=== PATIENT | female | born 1975 | race Two or more races ===

== ENCOUNTER 2017-02-01 07:50 | Emergency (ER) | payer BC ==
[~2017-02-01] VITALS: Ht 162.6 cm; Wt 115.7 kg
[~2017-02-01 07:50] MED LIST: CITA20TA5 PO; FERR-26 PO
[2017-02-01 08:06] VITALS: BP 130/83
[2017-02-01] MEDS ORDERED: KETOROLAC TROMETHAMINE 60 MG/2 ML SYRINGE. IM ONE (08:15)
[2017-02-01] MEDS ORDERED: BENZ100C PO (08:25)
[2017-02-01] MEDS ORDERED: PROAIR HFA8.5 GM INH (08:25)
--- NOTE | 2017-02-01 08:25 | PHYS DOC ---
Past Medical History Past Medical History: Anemia, Anxiety, Bronchitis Past Surgical History: Additional Past Surgical Histo: C SECT X 2 Alcohol Use: None Drug Use: None Adult General Chief Complaint Chief Complaint: SHORTNESS OF BREATH HPI HPI This is a 41-year-old female states she's had intermittent left upper chest pain with some mild shortness of breath for the last week and a half. Patient was seen recently in prescribed prednisone but this did not help. She denies any significant health problems other than anemia and anxiety. Patient is somewhat hoarse upon my examination but speaking in complete sentences and in no respiratory distress. She rates her pain a 5 out of 10 worse with deep breathing all localized to left upper chest. She denies any smoking history. Review of Systems Review of Systems Constitutional: Denies fever or chills [] Eyes: Denies change in visual acuity, redness, or eye pain [] HENT: Denies nasal congestion or sore throat [] Respiratory: Has cough, has shortness of breath [] Cardiovascular: No additional information not addressed in HPI [] GI: Denies abdominal pain, nausea, vomiting, bloody stools or diarrhea [] : Denies dysuria or hematuria [] Musculoskeletal: Denies back pain or joint pain [] Integument: Denies rash or skin lesions [] Neurologic: Denies headache, focal weakness or sensory changes [] Endocrine: Denies polyuria or polydipsia [] Current Medications Current Medications Current Medications Medications (Trade) Dose Ordered Sig/Gisele Start Time Stop Time Status Last Admin Dose Admin Ketorolac Tromethamine (Toradol Im) 60 mg 1X ONCE 02/01/17 08:15 02/01/17 08:16 DC 02/01/17 08:18 60 MG Allergies Allergies Allergies Coded Allergies Type Severity Reaction Last Updated Verified No Known Drug Allergies 11/15/16 No Physical Exam Physical Exam Constitutional: Well developed, well nourished, no acute distress, non-toxic appearance. [] HENT: Normocephalic, atraumatic, bilateral external ears normal, oropharynx moist, no oral exudates, nose normal. [] Eyes: PERRLA, EOMI, conjunctiva normal, no discharge. [] Neck: Normal range of motion, no tenderness, supple, no stridor. [] Cardiovascular:Heart rate regular rhythm, no murmur [] Lungs & Thorax: Bilateral breath sounds clear to auscultation [] Abdomen: Bowel sounds normal, soft, no tenderness, no masses, no pulsatile masses. [] Skin: Warm, dry, no erythema, no rash. [] Back: No tenderness, no CVA tenderness. [] Extremities: No tenderness, no cyanosis, no clubbing, ROM intact, no edema. [] Neurologic: Alert and oriented X 3, normal motor function, normal sensory function, no focal deficits noted. [] Psychologic: Affect normal, judgement normal, mood normal. [] Current Patient Data Vital Signs Vital Signs Date Time Temp Pulse Resp B/P Pulse Ox O2 Delivery O2 Flow Rate FiO2 02/01/17 08:06 98.1 94 22 100 Room Air 98.1 EKG EKG EKG as interpreted by me shows a sinus rhythm with a rate of 82 bpm. There is a normal axis. There are no obvious ischemic findings. Radiology/Procedures Radiology/Procedures Portable one view of the chest as interpreted by me did not reveal an acute cardiopulmonary process. Course & Med Decision Making Course & Med Decision Making Pertinent Labs and Imaging studies reviewed. (See chart for details) This 41-year-old female with a normal chest film and EKG that does not have any concerning findings was given an IM injection of Toradol. Upon final reassessment, the patient feels improved and will be discharged with a course of cough medicine and a albuterol inhaler. There is no indication at this time to perform any laboratory workup. Her symptoms seem typical for upper respiratory infection. Dragon Disclaimer Dragon Disclaimer This electronic medical record was generated, in whole or in part, using a voice recognition dictation system. Departure Departure Impression: Primary Impression: Upper respiratory infection Additional Impression: Cough Disposition: 01 HOME, SELF-CARE Admitting Physician: Other Condition: STABLE Referrals: UNKNOWN PCP NAME (PCP) Patient Instructions: Cough, Adult, [id number] Additional Instructions: Please take your medication as prescribed and follow up closely with your primary doctor in the next 2-3 days. Return to the ER if you develop any worsening of your symptoms. Scripts Albuterol Sulfate (Proair Hfa Inhaler)8.5 Gm [id number] Puff INH PRN Q6HRS PRN SHORTNESS OF BREATH #1 INHALER Ref 0 Prov:TATIANNA GRAY DO 02/01/17 Benzonatate (Tessalon Perle)100 Mg [id number] Mg PO TID PRN COUGH #15 CAP Prov:TATIANNA GRAY DO 02/01/17 Problem Qualifiers TATIANNA GRAY DO Feb 01, 2017 08:25
--- NOTE | 2017-02-01 08:25 | EKG ---
[facility] [address] [place] [address] Test Date: 2017-02-01 Test Time: 08:13:11 Pat Name: ELEAZAR BLACK Department: Room: Gender: F [employer]: : 1975 Requested By: TATIANNA GRAY Order Number: [id number] Reading MD: Measurements Intervals [place] Rate: 82 P: 48 TN: 154 QRS: 25 QRSD: 84 T: 22 QT: 356 QTc: 419 Interpretive Statements SINUS RHYTHM QRS(T) CONTOUR ABNORMALITY CONSIDER ANTEROLATERAL MYOCARDIAL DAMAGE RI6.01 Unconfirmed report No previous ECG available for comparison
--- NOTE | 2017-02-01 08:26 | RAD ---
Portable chest, 02/01/2017: History: Shortness of breath Comparison is made to a study from 11/15/2016. The heart size and pulmonary vascularity are normal. No pulmonary infiltrates are seen. There is no evidence of pleural fluid. IMPRESSION: No acute cardiopulmonary abnormality is detected.
== END 2017-02-01 08:39 | disposition home or self-care (01) ==
LOC: ER 07:50
DX: J06.9 Acute upper respiratory infection, unspecified (principal); F41.9 Anxiety disorder, unspecified
CPT/HCPCS: 71010; 93005; 96372; 99284; J1885

== ENCOUNTER 2017-11-08 08:13 | Emergency (ER) | payer BC ==
[~2017-11-08] VITALS: Ht 162.6 cm; Wt 117.5 kg
[~2017-11-08 08:13] MED LIST changes: +BENZ100C PO; +PROAIR HFA8.5 GM INH
[2017-11-08] MEDS ORDERED: KETOROLAC 30 MG/ML INJ. IV ONE (08:30)
[2017-11-08] MEDS ORDERED: DICYCLOMINE HCL 10 MG CAPSULE PO ONE (08:30)
[2017-11-08] MEDS ORDERED: IV NORMAL SALINE 1000ML BAG 1,000 ML IV ONE (08:30)
[2017-11-08] MEDS ORDERED: FAMOTIDINE 20 MG/2 ML VIAL IVP ONE (08:30)
[2017-11-08] MEDS ORDERED: ONDANSETRON PF 4 MG/2 ML VIAL. IV ONE (08:30)
--- NOTE | 2017-11-08 08:30 | PHYS DOC ---
Past Medical History Past Medical History: Anemia, Anxiety, Bronchitis Past Surgical History: , Tubal ligation Additional Past Surgical Histo: C SECT X 2 Alcohol Use: None Drug Use: None Adult General Chief Complaint Chief Complaint: ABDOMINAL PAIN HPI HPI Patient is a 42 year old female with history of anemia, anxiety, bronchitis, who presents today with nausea vomiting, diarrhea and a slight midepigastric abdominal pain intermittently and vomiting that has been going on for 3 days. Patient denies any hematemesis or melena. Denies any chance she is . She states she does not have a PCP. Review of Systems Review of Systems Constitutional: Denies fever or chills [] Eyes: Denies change in visual acuity, redness, or eye pain [] HENT: Denies nasal congestion or sore throat [] Respiratory: Denies cough or shortness of breath [] Cardiovascular: No additional information not addressed in HPI [] GI: Reports nausea vomiting and diarrhea. Reports slight midepigastric abdominal pain : Denies dysuria or hematuria [] Musculoskeletal: Denies back pain or joint pain [] Integument: Denies rash or skin lesions [] Neurologic: Denies headache, focal weakness or sensory changes [] All other systems were reviewed and found to be within normal limits, except as documented in this note. Current Medications Current Medications Current Medications Medications (Trade) Dose Ordered Sig/Gisele Start Time Stop Time Status Last Admin Dose Admin Dicyclomine HCl (Bentyl) 20 mg 1X ONCE 11/08/17 08:30 11/08/17 08:37 DC 11/08/17 09:03 20 MG Famotidine (Pepcid Vial) 20 mg 1X ONCE 11/08/17 08:30 11/08/17 08:37 DC 11/08/17 09:04 20 MG Info (Do NOT chart on this entry -- for MONITORING) 1 each PRN DAILY PRN 11/08/17 10:15 11/10/17 10:14 Iohexol (Omnipaque 300 Mg/ml) 75 ml 1X ONCE 11/08/17 10:15 11/08/17 10:20 DC 11/08/17 10:20 75 ML Ketorolac Tromethamine (Toradol) 30 mg 1X ONCE 11/08/17 08:30 11/08/17 08:37 DC 11/08/17 09:04 30 MG Ondansetron HCl (Zofran) 4 mg 1X ONCE 11/08/17 08:30 11/08/17 08:37 DC 11/08/17 09:04 4 MG Sodium Chloride 1,000 ml @ 1,000 mls/hr 1X ONCE 11/08/17 08:30 11/08/17 09:29 DC 11/08/17 09:03 1,000 MLS/HR Allergies Allergies Allergies Coded Allergies Type Severity Reaction Last Updated Verified No Known Drug Allergies 11/15/16 No Physical Exam Physical Exam Constitutional: Well developed, well nourished, no acute distress, non-toxic appearance. [] HENT: Normocephalic, atraumatic, bilateral external ears normal, oropharynx moist, no oral exudates, nose normal. [] Eyes: PERRLA, EOMI, conjunctiva normal, no discharge. [] Neck: Normal range of motion, no tenderness, supple, no stridor. [] Cardiovascular:Heart rate regular rhythm, no murmur [] Lungs & Thorax: Bilateral breath sounds clear to auscultation [] Abdomen: Rounded abdomen. Bowel sounds normal, soft, slight midepigastric abdominal tenderness, no right upper quadrant or right lower quadrant tenderness , no masses, no pulsatile masses. [] Skin: Warm, dry, no erythema, no rash. [] Back: No tenderness, no CVA tenderness. [] Extremities: No tenderness, no cyanosis, no clubbing, ROM intact, no edema. [] Neurologic: Alert and oriented X 3, normal motor function, normal sensory function, no focal deficits noted. [] Psychologic: Affect normal, judgement normal, mood normal. [] Current Patient Data Vital Signs Vital Signs Date Time Temp Pulse Resp B/P (MAP) Pulse Ox O2 Delivery O2 Flow Rate FiO2 11/08/17 08:20 97.6 81 20 153/91 (111) 98 Room Air 97.6 Lab Values Laboratory Tests Test 11/08/17 08:25 11/08/17 08:30 11/08/17 08:39 White Blood Count 4.5 x10^3/uL (4.0-11.0) Red Blood Count 4.47 x10^6/uL (3.50-5.40) Hemoglobin 9.3 g/dL (12.0-15.5) L Hematocrit 30.0 % (36.0-47.0) L Mean Corpuscular Volume 67 fL (79-100) L Mean Corpuscular Hemoglobin 21 pg (25-35) L Mean Corpuscular Hemoglobin Concent 31 g/dL (31-37) Red Cell Distribution Width 17.7 % (11.5-14.5) H Platelet Count 290 x10^3/uL (140-400) Neutrophils (%) (Auto) 62 % (31-73) Lymphocytes (%) (Auto) 24 % (24-48) Monocytes (%) (Auto) 10 % (0-9) H Eosinophils (%) (Auto) 2 % (0-3) Basophils (%) (Auto) 1 % (0-3) Neutrophils # (Auto) 2.8 x10^3uL (1.8-7.7) Lymphocytes # (Auto) 1.1 x10^3/uL (1.0-4.8) Monocytes # (Auto) 0.4 x10^3/uL (0.0-1.1) Eosinophils # (Auto) 0.1 x10^3/uL (0.0-0.7) Basophils # (Auto) 0.1 x10^3/uL (0.0-0.2) Platelet Estimate Adequate (ADEQUATE) Large Platelets Present Hypochromasia Present Poikilocytosis Present Anisocytosis Slight Microcytosis Marked Target Cells Occ Tear Drop Cells Few Ovalocytes Few Schistocytes Occ Sodium Level 143 mmol/L (136-145) Potassium Level 3.5 mmol/L (3.5-5.1) Chloride Level 104 mmol/L (98-107) Carbon Dioxide Level 27 mmol/L (21-32) Anion Gap 12 (6-14) Blood Urea Nitrogen 14 mg/dL (7-20) Creatinine 0.7 mg/dL (0.6-1.0) Estimated GFR (Cockcroft-Gault) 92.7 BUN/Creatinine Ratio 20 (6-20) Glucose Level 86 mg/dL (70-99) Calcium Level 8.5 mg/dL (8.5-10.1) Total Bilirubin 0.2 mg/dL (0.2-1.0) Aspartate Amino Transferase (AST) 36 U/L (15-37) Alanine Aminotransferase (ALT) 31 U/L (14-59) Alkaline Phosphatase 99 U/L (46-116) Total Protein 7.6 g/dL (6.4-8.2) Albumin 3.5 g/dL (3.4-5.0) Albumin/Globulin Ratio 0.9 (1.0-1.7) L Lipase 151 U/L (73-393) Urine Collection Type Unknown Urine Color Yellow Urine Clarity Clear Urine pH 6.5 Urine Specific Nelson 1.015 Urine Protein Negative mg/dL (NEG-TRACE) Urine Glucose (UA) Negative mg/dL (NEG) Urine Ketones (Stick) Negative mg/dL (NEG) Urine Blood Large (NEG) Urine Nitrite Negative (NEG) Urine Bilirubin Negative (NEG) Urine Urobilinogen Dipstick 0.2 mg/dL (0.2 mg/dL) Urine Leukocyte Esterase Small (NEG) Urine RBC 3-5 /HPF (0-2) Urine WBC Occ /HPF (0-4) Urine Squamous Epithelial Cells Few /LPF Urine Bacteria 0 /HPF (0-FEW) POC Urine HCG, Qualitative Hcg negative (Negative) Laboratory Tests 11/08/17 08:25 Laboratory Tests 11/08/17 08:25 EKG EKG [] Radiology/Procedures Radiology/Procedures []PROCEDURE: CT ABD PELV W/ IV CONTRST ONLY Indication: Upper abdominal pain and vomiting. Technique: Axial images and coronal and sagittal reformatted images are provided. 75 mL of intravenous Omnipaque 300 was administered without complication. No comparison is available. One or more of the following individualized dose reduction techniques were utilized for this examination: 1. Automated exposure control 2. Adjustment of the mA and/or kV according to patient size 3. Use of iterative reconstruction technique Findings: The lung bases are clear. There is no pleural effusion. The heart is not enlarged. There is fatty infiltration of the liver. Gallbladder is unremarkable. Spleen is not enlarged. Pancreas and adrenals are unremarkable. Kidneys are symmetrically perfused. Aorta is normal caliber. There is a retroaortic left renal vein which is a normal vascular variant. There is a small hiatal hernia. Lack of oral contrast limits evaluation of bowel. There is no small bowel obstruction or mural thickening. There are a few diverticula in the colon. There are no findings of diverticulitis. Normal appendix is probably visualized. There is no free pelvic fluid. There is no adnexal mass. Bladder is unremarkable. There are calcified phleboliths. There are minimal degenerative changes in the spine. Impression: 1. No acute abdominal findings. 2. Diverticulosis in the colon. 3. Probable small hiatal hernia. 4. Fatty infiltration of the liver. DICTATED and SIGNED BY: ONESIMO SPRINGER MD DATE: 11/08/17 1031 CC: PAOLA BACA APRN; NO PCP; NON,STAFF ~ Course & Med Decision Making Course & Med Decision Making Pertinent Labs and Imaging studies reviewed. (See chart for details) This is a 42-year-old female patient presented to the ED today with nausea vomiting and diarrhea for 3 days. She has slight midepigastric abdominal pain as well. Patient's labs are negative for any acute findings. UA positive. Discharged with Bactrim for 3 days. Instructed to push fluids. Maintain good hand hygiene. Discharged with Compazine for nausea vomiting. Discharged with acyclovir. Follow-up with PCP in 1-2 weeks. Dragon Disclaimer Dragon Disclaimer This electronic medical record was generated, in whole or in part, using a voice recognition dictation system. Departure Departure Impression: Primary Impression: Nausea and vomiting Additional Impressions: Diarrhea Urinary tract infection Disposition: HOME, SELF-CARE Condition: STABLE Referrals: NO PCP (PCP) follow up with your doctor in one week Patient Instructions: Diarrhea, Nausea and Vomiting, Urinary Tract Infection Additional Instructions: You were seen for nausea vomiting and diarrhea. This is likely a viral illness. It will run its own course. Push fluids. Maintain good hand hygiene. Your urine also has infection. Take the prescribed antibiotics until completed. Follow-up with your own doctor in 1-2 weeks. Scripts Sulfamethoxazole/Trimethoprim (BACTRIM DS TABLET) 1 Each Tablet 1 TAB PO BID, #6 TAB Prov: PAOLA BACA APRN 11/08/17 Dicyclomine Hcl (DICYCLOMINE HCL) 20 Mg Tablet 1 TAB PO QID, #30 TAB Prov: PAOLA BACA APRN 11/08/17 Prochlorperazine Maleate (Compazine) 10 Mg Tablet 10 MG PO Q8HRS, #20 TAB Prov: PAOLA BACA APRN 11/08/17 Problem Qualifiers Primary Impression: Nausea and vomiting Vomiting type: unspecified Vomiting Intractability: non-intractable Qualified Codes: R11.2 - Nausea with vomiting, unspecified Additional Impressions: Diarrhea Diarrhea type: unspecified type Qualified Codes: R19.7 - Diarrhea, unspecified Urinary tract infection Urinary tract infection type: site unspecified Hematuria presence: without hematuria Qualified Codes: N39.0 - Urinary tract infection, site not specified PAOLA BACA APRN Nov 08, 2017 08:30
[2017-11-08 08:49] LABS: BILIRUBIN,URINE NEGATIVE (NEG); GLUCOSE,URINE NEGATIVE (NEG); NITRITE,URINE NEGATIVE (NEG); PH,URINE 6.5; PROTEIN,URINE NEGATIVE (NEG-TRACE); UROBILINOGEN,URINE 0.2 mg/dL (0.2 mg/dL)
[2017-11-08 08:50] LABS: BASO # 0.1 x10^3/uL (0.0-0.2); BASO % 1 % (0-3); EOS % 2 % (0-3); HEMOGLOBIN 9.3 g/dL (12.0-15.5); LYMPH # 1.1 x10^3/uL (1.0-4.8); LYMPH % 24 % (24-48); MEAN CORPUSCULAR HEMOGLOBIN 21 pg (25-35); MEAN CORPUSCULAR HGB CONC 31 g/dL (31-37); MEAN CORPUSCULAR VOLUME 67 fL (79-100); MONO % 10 % (0-9); NEUT % 62 % (31-73); PLATELET COUNT 290 x10^3/uL (140-400); RED BLOOD COUNT 4.47 x10^6/uL (3.50-5.40); RED CELL DISTRIBUTION WIDTH 17.7 % (11.5-14.5); WHITE BLOOD COUNT 4.5 x10^3/uL (4.0-11.0)
[2017-11-08 08:59] LABS: CALCIUM 8.5 mg/dL (8.5-10.1); CREATININE 0.7 mg/dL (0.6-1.0); GFR 92.7; POTASSIUM 3.5 mmol/L (3.5-5.1)
[2017-11-08 08:59] LABS: BACTERIA,URINE 0 /HPF (0-FEW); SQUAMOUS EPITHELIAL CELL,UR FEW /LPF; WBC,URINE OCC /HPF (0-4)
[2017-11-08 09:03] LABS: ALBUMIN 3.5 g/dL (3.4-5.0); ALBUMIN/GLOBULIN RATIO 0.9 (1.0-1.7); TOTAL BILIRUBIN 0.2 mg/dL (0.2-1.0); TOTAL PROTEIN 7.6 g/dL (6.4-8.2)
[2017-11-08 09:40] LABS: PLT ESTIMATE ADEQUATE (ADEQUATE)
[2017-11-08 09:41] LABS: ANISOCYTOSIS SLIGHT; HYPOCHROMIA PRESENT; MICROCYTOSIS MARKED; POIKILOCYTOSIS PRESENT
[2017-11-08 09:42] LABS: OVALOCYTES FEW; SCHISTOCYTES OCC; TARGET CELLS OCC; TEAR DROP CELLS FEW
[2017-11-08] MEDS ORDERED: CONTRAST GIVEN MC PRN (10:15)
[2017-11-08] MEDS ORDERED: IOHEXOL 300 MG/ML 100ML VIAL. IV ONE (10:15)
--- NOTE | 2017-11-08 10:40 | RAD ---
Indication: Upper abdominal pain and vomiting. Technique: Axial images and coronal and sagittal reformatted images are provided. 75 mL of intravenous Omnipaque 300 was administered without complication. No comparison is available. One or more of the following individualized dose reduction techniques were utilized for this examination: 1. Automated exposure control 2. Adjustment of the mA and/or kV according to patient size 3. Use of iterative reconstruction technique Findings: The lung bases are clear. There is no pleural effusion. The heart is not enlarged. There is fatty infiltration of the liver. Gallbladder is unremarkable. Spleen is not enlarged. Pancreas and adrenals are unremarkable. Kidneys are symmetrically perfused. Aorta is normal caliber. There is a retroaortic left renal vein which is a normal vascular variant. There is a small hiatal hernia. Lack of oral contrast limits evaluation of bowel. There is no small bowel obstruction or mural thickening. There are a few diverticula in the colon. There are no findings of diverticulitis. Normal appendix is probably visualized. There is no free pelvic fluid. There is no adnexal mass. Bladder is unremarkable. There are calcified phleboliths. There are minimal degenerative changes in the spine. Impression: 1. No acute abdominal findings. 2. Diverticulosis in the colon. 3. Probable small hiatal hernia. 4. Fatty infiltration of the liver.
[2017-11-08] MEDS ORDERED: DICY20TA3 PO (11:13)
[2017-11-08] MEDS ORDERED: PROC10TA57 PO (11:13)
[2017-11-08] MEDS ORDERED: SULF1TAB24 PO (11:13)
[2017-11-08 11:20] VITALS: BP 133/86
== END 2017-11-08 11:31 | disposition home or self-care (01) ==
LOC: ER 08:13
DX: R19.7 Diarrhea, unspecified (principal); N39.0 Urinary tract infection, site not specified; F41.9 Anxiety disorder, unspecified
CPT/HCPCS: 36415; 74177; 80053; 81001; 81025; 83690; 85025; 87086; 96361; 96374; 96375; 99285; J1885; J2405; J7030; Q9967; S0028

== ENCOUNTER 2019-02-14 10:48 | Emergency (ER) | payer SELFPAY ==
[~2019-02-14] VITALS: Ht 162.6 cm; Wt 117.5 kg
[~2019-02-14 10:48] MED LIST changes: +ALBU2.5V8 INH; -CITA20TA5 PO; +CITA20TA6 PO; +DICY20TA3 PO; -FERR-26 PO; +FERR325T14 PO; -PROAIR HFA8.5 GM INH; +PROC10TA57 PO; +SULF1TAB24 PO
[2019-02-14 11:01] VITALS: BP 134/79
[2019-02-14] MEDS ORDERED: MELO7.5T29 PO (11:04)
[2019-02-14] MEDS ORDERED: HYDR-3164 PO (11:04)
[2019-02-14] MEDS ORDERED: AMOX500T PO (11:04)
--- NOTE | 2019-02-14 11:05 | PHYS DOC ---
Past Medical History Past Medical History: Anemia, Anxiety, Bronchitis Past Surgical History: , Tubal ligation Additional Past Surgical Histo: C SECT X 2 Alcohol Use: None Drug Use: None Adult General Chief Complaint Chief Complaint: FACE PROBLEM HPI HPI Patient is a 43 year old female who presents with left side upper tooth pain for the past 3 days that has been getting a little bit worse over time. Woke up today with some swelling to the face. Subjective fever, no home temperature has been taken. No relief with [id number] ibuprofen. No trauma. She is able to swallow without any difficulty. Nothing seems to make the symptoms better or worse.[] Review of Systems Review of Systems Constitutional: Denies fever or chills [] Eyes: Denies change in visual acuity, redness, or eye pain [] HENT: Denies nasal congestion or sore throat, see history of present illness[] Respiratory: Denies cough or shortness of breath [] Cardiovascular: No chest pain or palpitations[] GI: Denies abdominal pain, nausea, vomiting, bloody stools or diarrhea [] : Denies dysuria or hematuria [] Musculoskeletal: Denies back pain or joint pain [] Integument: Denies rash or skin lesions [] Neurologic: Denies headache, focal weakness or sensory changes [] Endocrine: Denies polyuria or polydipsia [] All other systems were reviewed and found to be within normal limits, except as documented in this note. Allergies Allergies Allergies Coded Allergies Type Severity Reaction Last Updated Verified No Known Drug Allergies 11/15/16 No Physical Exam Physical Exam Constitutional: Well developed, well nourished, no acute distress, non-toxic appearance. [] HENT: Normocephalic, atraumatic, bilateral external ears normal, oropharynx moist, no oral exudates, nose normal. Tenderness to percussion over tooth #9 and 10. There is no drainable abscess appreciated. No abnormal lesions on palpation of the buccal or lingual surface.[] Eyes: PERRLA, EOMI, conjunctiva normal, no discharge. [] Neck: Normal range of motion, no tenderness, supple, no stridor. [] Cardiovascular:Heart rate regular rhythm, no murmur [] Lungs & Thorax: Bilateral breath sounds clear to auscultation [] Abdomen: Not examined[] Skin: Warm, dry, no erythema, no rash. [] Back: No tenderness, no CVA tenderness. [] Extremities: No tenderness, no cyanosis, no clubbing, ROM intact, no edema. [] Neurologic: Alert and oriented X 3, normal motor function, normal sensory function, no focal deficits noted. [] Psychologic: Affect normal, judgement normal, mood normal. [] EKG EKG [] Radiology/Procedures Radiology/Procedures [] Course & Med Decision Making Course & Med Decision Making Pertinent Labs and Imaging studies reviewed. (See chart for details) Medical decision making: Patient appears to have a periapical abscess, no drainable abscess appreciated. Nontoxic patient. She is able to tolerate her own secretions and liquids as well as foods. We will attempt outpatient treatment and have her follow-up with dental.[] Dragon Disclaimer Dragon Disclaimer This electronic medical record was generated, in whole or in part, using a voice recognition dictation system. Departure Departure Impression: Primary Impression: Periapical abscess with facial involvement Disposition: HOME, SELF-CARE Condition: IMPROVED Referrals: NO PCP (PCP) Patient Instructions: Dental Abscess Additional Instructions: Follow-up with your primary care physician and dentist in 2 days. Take the medication as prescribed. Return to the ER if worsening pain, unable to tolerate swallowing, or any other concerns. Scripts Hydrocodone/Apap 5-325 (NORCO 5-325 TABLET) 1 Each Tablet 1-2 EACH PO PRN Q6HRS PRN for SEVERE PAIN, #15 as needed for pain Prov: DENISSE MCDONALD DO 02/14/19 Meloxicam (MELOXICAM) 7.5 Mg Tablet 7.5 MG PO DAILY, #20 TAB Prov: DENISSE MCDONALD DO 02/14/19 Amoxicillin (AMOXICILLIN) 500 Mg Tablet 1 TAB PO TID, #30 TAB Prov: DENISSE MCDONALD DO 02/14/19 DENISSE MCDONALD DO Feb 14, 2019 11:05
== END 2019-02-14 11:14 | disposition home or self-care (01) ==
LOC: ER 10:48
DX: K04.7 Periapical abscess without sinus (principal); R50.9 Fever, unspecified; F41.9 Anxiety disorder, unspecified; Z98.890 Other specified postprocedural states; Z98.51 Tubal ligation status
CPT/HCPCS: 99283

== ENCOUNTER 2019-12-29 13:15 | Emergency (ER) | payer SELFPAY ==
[~2019-12-29] VITALS: Ht 162.6 cm; Wt 113.6 kg
[~2019-12-29 13:15] MED LIST changes: +AMOX500T PO; +HYDR-3164 PO; +MELO7.5T29 PO
[2019-12-29] MEDS ORDERED: IV NORMAL SALINE 1000ML BAG 1,000 ML IV SCH (13:46)
--- NOTE | 2019-12-29 13:56 | PHYS DOC ---
Past Medical History Past Medical History: Anemia, Anxiety, Bronchitis Past Surgical History: , Tubal ligation Additional Past Surgical Histo: C SECT X 2 Alcohol Use: None Drug Use: None Adult General Chief Complaint Chief Complaint: DIZZY/LIGHT HEADED [facility] HPI Patient is a 44-year-old female who presents to the emergency department for evaluation. She states for the past 3 days, she has had several episodes of nausea, vomiting, diarrhea, as well as generalized abdominal pain, described as a burning pain. She has not had any bloody emesis or stools, urinary symptoms, chest pain, or shortness of breath. She states she has felt lightheaded. She is noted to be somewhat tachycardic. She has not had any recent travel or antibiotic use. There are no alleviating or exacerbating factors to her symptoms otherwise. The patient is Marshallese-speaking and history was obtained via language line. Review of Systems Review of Systems Constitutional: Denies chills. Reports subjective fevers. [] Eyes: Denies change in visual acuity, redness, or eye pain [] HENT: Denies nasal congestion or sore throat [] Respiratory: Denies cough or shortness of breath [] Cardiovascular: The patient denies any shortness of breath, chest pain, palpitations, or orthopnea [] GI: No additional information not addressed in HPI [] : Denies dysuria or hematuria [] Musculoskeletal: Denies back pain or joint pain [] Integument: Denies rash or skin lesions [] Neurologic: Denies headache, focal weakness or sensory changes. Reports lightheadedness and generalized fatigue.[] Endocrine: Denies polyuria or polydipsia [] All other systems were reviewed and found to be within normal limits, except as documented in this note. Current Medications Current Medications Current Medications Medications (Trade) Dose Ordered Sig/Gisele Start Time Stop Time Status Last Admin Dose Admin Acetaminophen (Tylenol) 1,000 mg 1X ONCE 12/29/19 14:00 12/29/19 14:01 DC 12/29/19 14:25 1,000 MG Info (CONTRAST GIVEN -- Rx MONITORING) 1 each PRN DAILY PRN 12/29/19 14:45 12/31/19 14:44 Iohexol (Omnipaque 300 Mg/ml) 75 ml 1X ONCE 12/29/19 14:30 12/29/19 14:33 DC 12/29/19 14:53 75 ML Morphine Sulfate (Morphine Sulfate) 4 mg PRN Q15MIN PRN 12/29/19 14:00 12/30/19 13:59 12/29/19 14:24 4 MG Multi-Ingredient Mouthwash/Gargle (Gi Cocktail) 20 ml 1X ONCE 12/29/19 14:00 12/29/19 14:01 DC 12/29/19 14:23 20 ML Ondansetron HCl (Zofran) 4 mg 1X ONCE 12/29/19 14:00 12/29/19 14:01 DC 12/29/19 14:24 4 MG Potassium Chloride (Klor-Con) 40 meq 1X ONCE 12/29/19 14:45 12/29/19 14:46 DC 12/29/19 15:47 40 MEQ Sodium Chloride 1,000 ml @ 1,000 mls/hr 1X ONCE 12/29/19 14:00 12/29/19 14:59 DC 12/29/19 14:00 1,000 MLS/HR Allergies Allergies Allergies Coded Allergies Type Severity Reaction Last Updated Verified No Known Drug Allergies 11/15/16 No Physical Exam Physical Exam PHYSICAL EXAM: CONSTITUTIONAL: Well developed, well nourished, nontoxic appearing HEAD: normocephalic, atraumatic EENT: PERRL, EOMI. Conjunctivae normal color, sclerae non-icteric; moist mucous membranes. NECK: Supple, non-tender; no meningismus. LUNGS: Lungs CTA, breathing even and unlabored. Normal air movement. HEART: Regular tachycardia, no murmur CHEST: No deformity; non-tender ABDOMEN: The abdomen is soft, there is mild diffuse tenderness to palpation to the entire abdomen, without focal tenderness to palpation, rebound, or guarding. And non-tender, no masses or bruits. EXTREM: Normal ROM; no deformity, no calf tenderness. Normal pulses palpable in all extremities. There is no pedal edema. SKIN: No rash; no diaphoresis NEURO: Alert; normal speech and cognition; CN's grossly intact; strength grossly intact without focal deficit. BACK: No CVA TTP. Current Patient Data Vital Signs Vital Signs Date Time Temp Pulse Resp B/P (MAP) Pulse Ox O2 Delivery O2 Flow Rate FiO2 12/29/19 14:24 20 12/29/19 13:15 100.9 117 157/94 (115) 97 Room Air 100.9 Lab Values Laboratory Tests Test 12/29/19 13:49 12/29/19 13:57 12/29/19 17:08 White Blood Count 7.2 x10^3/uL (4.0-11.0) Red Blood Count 4.70 x10^6/uL (3.50-5.40) Hemoglobin 9.4 g/dL (12.0-15.5) L Hematocrit 30.4 % (36.0-47.0) L Mean Corpuscular Volume 65 fL (79-100) L Mean Corpuscular Hemoglobin 20 pg (25-35) L Mean Corpuscular Hemoglobin Concent 31 g/dL (31-37) Red Cell Distribution Width 21.8 % (11.5-14.5) H Platelet Count 249 x10^3/uL (140-400) Neutrophils (%) (Auto) 94 % (31-73) H Lymphocytes (%) (Auto) 3 % (24-48) L Monocytes (%) (Auto) 3 % (0-9) Eosinophils (%) (Auto) 0 % (0-3) Basophils (%) (Auto) 1 % (0-3) Neutrophils # (Auto) 6.7 x10^3/uL (1.8-7.7) Lymphocytes # (Auto) 0.2 x10^3/uL (1.0-4.8) L Monocytes # (Auto) 0.2 x10^3/uL (0.0-1.1) Eosinophils # (Auto) 0.0 x10^3/uL (0.0-0.7) Basophils # (Auto) 0.0 x10^3/uL (0.0-0.2) Segmented Neutrophils % 75 % (35-66) H Band Neutrophils % 15 % (0-9) H Lymphocytes % 4 % (24-48) L Monocytes % 6 % (0-10) Toxic Granulation Slight Platelet Estimate Adequate (ADEQUATE) Polychromasia Slight Hypochromasia Mod Anisocytosis Mod Microcytosis Marked Ovalocytes Few Schistocytes Occ Sodium Level 136 mmol/L (136-145) Potassium Level 3.3 mmol/L (3.5-5.1) L Chloride Level 100 mmol/L (98-107) Carbon Dioxide Level 25 mmol/L (21-32) Anion Gap 11 (6-14) Blood Urea Nitrogen 13 mg/dL (7-20) Creatinine 1.1 mg/dL (0.6-1.0) H Estimated GFR (Cockcroft-Gault) 54.5 BUN/Creatinine Ratio 12 (6-20) Glucose Level 88 mg/dL (70-99) Lactic Acid Level 1.0 mmol/L (0.4-2.0) Calcium Level 8.6 mg/dL (8.5-10.1) Total Bilirubin 0.3 mg/dL (0.2-1.0) Aspartate Amino Transferase (AST) 42 U/L (15-37) H Alanine Aminotransferase (ALT) 48 U/L (14-59) Alkaline Phosphatase 111 U/L (46-116) Troponin I Quantitative < 0.017 ng/mL (0.000-0.055) Total Protein 7.4 g/dL (6.4-8.2) Albumin 3.7 g/dL (3.4-5.0) Albumin/Globulin Ratio 1.0 (1.0-1.7) Lipase 119 U/L (73-393) Influenza Type A Antigen Negative (NEGATIVE) Influenza Type B Antigen Negative (NEGATIVE) Urine Collection Type Unknown Urine Color Yellow Urine Clarity Clear Urine pH 6.0 Urine Specific [place] >=1.030 Urine Protein Negative mg/dL (NEG-TRACE) Urine Glucose (UA) Negative mg/dL (NEG) Urine Ketones (Stick) Negative mg/dL (NEG) Urine Blood Negative (NEG) Urine Nitrite Negative (NEG) Urine Bilirubin Negative (NEG) Urine Urobilinogen Dipstick 0.2 mg/dL (0.2 mg/dL) Urine Leukocyte Esterase Negative (NEG) Urine RBC Rare /HPF (0-2) Urine WBC Rare /HPF (0-4) Urine Squamous Epithelial Cells Many /LPF Urine Bacteria Few /HPF (0-FEW) Laboratory Tests 12/29/19 13:49 Laboratory Tests 12/29/19 13:49 EKG EKG []Sinus tachycardia at a rate of 111 beats for minute, normal axis, normal intervals. Nonspecific ST/T changes without acute ischemic changes noted. Radiology/Procedures Radiology/Procedures PROCEDURE: CT ABD PELV W/ IV CONTRST ONLY Exam: CT abdomen and pelvis with contrast INDICATION: Abdominal pain, nausea vomiting diarrhea TECHNIQUE: Sequential axial images through the abdomen and pelvis obtained following the administration of 75 mL of Omni 300 IV contrast. Sagittal and coronal reformatted images were reconstructed from the axial data and reviewed. Comparisons: 11/08/2017 FINDINGS: Heart size is normal. No pericardial effusion. Visualized lung bases are clear. No pleural effusion. Liver, spleen, pancreas, gallbladder and adrenals are unremarkable. Kidneys a straight symmetric enhancement. No perinephric inflammation or hydronephrosis. No renal or ureteral calculi are identified. Bladder is decompressed not well evaluated. Uterus is not enlarged. No abnormal adnexal mass. Large and small bowel are unremarkable. Appendix is normal. No free intra-abdominal air or fluid. No obstruction. Abdominal aorta has a normal course and caliber. Abdominal vasculature is patent. No enlarged abdominal lymph nodes are identified. No suspicious osseous lesions or acute fractures. IMPRESSION: 1. Liquid stool noted throughout the colon consistent with history of diarrhea. 2. Otherwise, no acute process identified within the abdomen or pelvis.[] Course & Med Decision Making Course & Med Decision Making Pertinent Labs and Imaging studies reviewed. (See chart for details) []5:35 PM:Patient remains stable. I discussed test results, the need for close follow-up, and return precautions. Dragon Disclaimer Dragon Disclaimer This electronic medical record was generated, in whole or in part, using a voice recognition dictation system. Departure Departure Impression: Primary Impression: Nausea vomiting and diarrhea Disposition: 01 HOME, SELF-CARE Condition: STABLE Referrals: SEVEN PATTERSON MD (PCP) Patient Instructions: Diarrhea, Nausea and Vomiting, Viral Gastroenteritis Scripts Ondansetron (ONDANSETRON ODT) 4 Mg Tab.rapdis 1 TAB PO PRN Q6-8HRS, #15 TAB Prov: DORINDA RODRIGUEZ MD 12/29/19 DORINDA RODRIGUEZ MD Dec 29, 2019 13:56
[2019-12-29] MEDS ORDERED: LIDO:MAALOX 1:1 20 ML SINGLE DOSE. SWSW ONE (14:00)
[2019-12-29] MEDS ORDERED: IV NORMAL SALINE 1000ML BAG 1,000 ML IV ONE (14:00)
[2019-12-29] MEDS ORDERED: ONDANSETRON PF 4 MG/2 ML VIAL. IV ONE (14:00)
[2019-12-29] MEDS ORDERED: ACETAMINOPHEN 500 MG TABLET PO ONE (14:00)
[2019-12-29] MEDS ORDERED: MORPHINE SULFATE 4 MG/ML VIAL. IV/SQ PRN (14:00)
[2019-12-29 14:01] LABS: BASO % 1 % (0-3); EOS % 0 % (0-3); HEMATOCRIT 30.4 % (36.0-47.0); HEMOGLOBIN 9.4 g/dL (12.0-15.5); LYMPH # 0.2 x10^3/uL (1.0-4.8); LYMPH % 3 % (24-48); MEAN CORPUSCULAR HEMOGLOBIN 20 pg (25-35); MEAN CORPUSCULAR HGB CONC 31 g/dL (31-37); MEAN CORPUSCULAR VOLUME 65 fL (79-100); MONO # 0.2 x10^3/uL (0.0-1.1); MONO % 3 % (0-9); NEUT # 6.7 x10^3/uL (1.8-7.7); NEUT % 94 % (31-73); PLATELET COUNT 249 x10^3/uL (140-400); RED CELL DISTRIBUTION WIDTH 21.8 % (11.5-14.5); WHITE BLOOD COUNT 7.2 x10^3/uL (4.0-11.0)
[2019-12-29 14:21] LABS: CALCIUM 8.6 mg/dL (8.5-10.1); CREATININE 1.1 mg/dL (0.6-1.0); GFR 54.5; POTASSIUM 3.3 mmol/L (3.5-5.1)
[2019-12-29 14:26] LABS: ALBUMIN 3.7 g/dL (3.4-5.0); TOTAL BILIRUBIN 0.3 mg/dL (0.2-1.0); TOTAL PROTEIN 7.4 g/dL (6.4-8.2)
[2019-12-29] MEDS ORDERED: IOHEXOL 300 MG/ML 100ML VIAL. IV ONE (14:30)
[2019-12-29 14:33] LABS: INFLUENZA A PATIENT NEGATIVE (NEGATIVE); INFLUENZA B PATIENT NEGATIVE (NEGATIVE)
[2019-12-29 14:40] LABS: % BANDS 15 % (0-9); % LYMPHS 4 % (24-48); % MONOS 6 % (0-10); % SEGS 75 % (35-66)
--- NOTE | 2019-12-29 14:40 | EKG ---
[facility] [address] [place] [address] Test Date: 2019-12-29 Test Time: 13:49:50 Pat Name: ELEAZAR BLACK Department: Room: Gender: F [employer]: : 1975 Requested By: DORINDA RODRIGUEZ Order Number: [id number] Reading MD: Measurements Intervals [place] Rate: 110 P: 36 MT: 144 QRS: 26 QRSD: 82 T: 28 QT: 360 QTc: 493 Interpretive Statements SINUS TACHYCARDIA NON SPECIFIC T ABNORMALITY NON SPECIFIC ST DEPRESSION BORDERLINE ECG No previous ECG available for comparison
[2019-12-29] MEDS ORDERED: CONTRAST GIVEN. MC PRN (14:45)
[2019-12-29] MEDS ORDERED: POTASSIUM CHLORIDE 20 MEQ TABLET.ER. PO ONE (14:45)
[2019-12-29 15:20] LABS: PLT ESTIMATE ADEQUATE (ADEQUATE)
--- NOTE | 2019-12-29 15:21 | RAD ---
Exam: CT abdomen and pelvis with contrast INDICATION: Abdominal pain, nausea vomiting diarrhea TECHNIQUE: Sequential axial images through the abdomen and pelvis obtained following the administration of 75 mL of Omni 300 IV contrast. Sagittal and coronal reformatted images were reconstructed from the axial data and reviewed. Comparisons: 11/08/2017 FINDINGS: Heart size is normal. No pericardial effusion. Visualized lung bases are clear. No pleural effusion. Liver, spleen, pancreas, gallbladder and adrenals are unremarkable. Kidneys a straight symmetric enhancement. No perinephric inflammation or hydronephrosis. No renal or ureteral calculi are identified. Bladder is decompressed not well evaluated. Uterus is not enlarged. No abnormal adnexal mass. Large and small bowel are unremarkable. Appendix is normal. No free intra-abdominal air or fluid. No obstruction. Abdominal aorta has a normal course and caliber. Abdominal vasculature is patent. No enlarged abdominal lymph nodes are identified. No suspicious osseous lesions or acute fractures. IMPRESSION: 1. Liquid stool noted throughout the colon consistent with history of diarrhea. 2. Otherwise, no acute process identified within the abdomen or pelvis. Exposure: One or more of the following in the visualized dose reduction techniques were utilized for this examination: 1. Automated exposure control 2. Adjustment of the MA and/or KV according to patient size 3. Use of iterative of reconstructive technique Electronically signed by: Taina Westbrook MD (12/29/2019 3:18 PM) [facility] [place]
[2019-12-29 15:25] LABS: HYPOCHROMIA MOD; POLYCHROMASIA SLIGHT
[2019-12-29 15:26] LABS: ANISOCYTOSIS MOD; MICROCYTOSIS MARKED; OVALOCYTES FEW; SCHISTOCYTES OCC; TOXIC GRANULATION SLIGHT
[2019-12-29 17:14] LABS: BILIRUBIN,URINE NEGATIVE (NEG); CLARITY,URINE CLEAR; COLOR,URINE YELLOW; NITRITE,URINE NEGATIVE (NEG); PROTEIN,URINE NEGATIVE (NEG-TRACE); UROBILINOGEN,URINE 0.2 mg/dL (0.2 mg/dL)
[2019-12-29 17:21] LABS: RBC,URINE RARE /HPF (0-2); WBC,URINE RARE /HPF (0-4)
[2019-12-29 17:22] LABS: BACTERIA,URINE FEW /HPF (0-FEW); SQUAMOUS EPITHELIAL CELL,UR MANY /LPF
[2019-12-29] MEDS ORDERED: ONDA4TAB12 PO (17:36)
[2019-12-29 17:38] VITALS: BP 95/53
== END 2019-12-29 17:45 | disposition home or self-care (01) ==
LOC: ER 13:15
DX: R11.2 Nausea with vomiting, unspecified (principal); R19.7 Diarrhea, unspecified; R10.84 Generalized abdominal pain; R42 Dizziness and giddiness; F41.9 Anxiety disorder, unspecified; Z98.51 Tubal ligation status; Z98.890 Other specified postprocedural states; Z79.899 Other long term (current) drug therapy
CPT/HCPCS: 36415; 74177; 80053; 81001; 83605; 83690; 84484; 85007; 85025; 87804; 93005; 96361; 96374; 96375; 99285; J2270; J2405; J7030; Q9967

== ENCOUNTER 2022-02-02 23:57 | Emergency (ER) | payer OTHER ==
[~2022-02-02] VITALS: Ht 162.6 cm; Wt 113.0 kg
[~2022-02-02 23:57] MED LIST changes: +DICY20TA PO; -DICY20TA3 PO; +ONDA4TAB12 PO
[2022-02-03 01:17] LABS: BASO % 1 % (0-3); EOS # 0.2 x10^3/uL (0.0-0.7); EOS % 4 % (0-3); HEMATOCRIT 26.8 % (36.0-47.0); HEMOGLOBIN 8.3 g/dL (12.0-15.5); LYMPH # 1.7 x10^3/uL (1.0-4.8); LYMPH % 25 % (24-48); MEAN CORPUSCULAR HEMOGLOBIN 19 pg (25-35); MEAN CORPUSCULAR HGB CONC 31 g/dL (31-37); MEAN CORPUSCULAR VOLUME 60 fL (79-100); MONO # 0.4 x10^3/uL (0.0-1.1); MONO % 7 % (0-9); NEUT # 4.2 x10^3/uL (1.8-7.7); NEUT % 64 % (31-73); PLATELET COUNT 345 x10^3/uL (140-400); RED BLOOD COUNT 4.47 x10^6/uL (3.50-5.40); RED CELL DISTRIBUTION WIDTH 19.2 % (11.5-14.5); WHITE BLOOD COUNT 6.5 x10^3/uL (4.0-11.0)
--- NOTE | 2022-02-03 01:20 | ED.ADGEN ---
Past Medical History Past Medical History: Anemia, Anxiety, Bronchitis Past Surgical History: , Tubal ligation Additional Past Surgical Histo: C SECT X 3 Smoking Status: Never Smoker Alcohol Use: Occasionally Drug Use: None General Adult EDM: Chief Complaint: MULTIPLE COMPLAINTS HPI: HPI: Patient is a 46 year old female coming in for headache, vision changes, palp itations. Patient states that she was seen 1.5 weeks ago by her primary care physician for heavy menstrual periods. Patient states that they had tried to get a hold of her but she just found out that her hemoglobin was 5.3. He has a history of anemia and had a blood transfusion 1 year ago. Patient states that she sees spots when she tries to get up suddenly, which also makes headache worse. Patient denies any blood thinners, aspirin or other chronic NSAID use. Denies any black or bloody stools. Says her menstrual cycle stopped 4 days ago. Review of Systems: Review of Systems: All other systems within normal limits except for as noted in the HPI Current Medications: Current Medications Medications (Trade) Dose Ordered Sig/Gisele Start Time Stop Time Status Last Admin Dose Admin Acetaminophen (Tylenol) 1,000 mg 1X ONCE 02/03/22 01:30 02/03/22 01:31 DC 02/03/22 01:41 1,000 MG Ketorolac Tromethamine (Toradol 15mg Vial) 15 mg 1X ONCE 02/03/22 03:00 02/03/22 03:01 DC Sodium Chloride 1,000 ml @ 1,000 mls/hr 1X ONCE 02/03/22 03:00 02/03/22 03:59 DC Allergies: Allergies: Allergies Coded Allergies Type Severity Reaction Last Updated Verified Iodinated Contrast Media Allergy Intermediate RASH/ITCHING 02/03/22 Yes Physical Exam: PE: Constitutional: Well developed, well nourished, no acute distress, non-toxic appearance. [] HENT: Normocephalic, atraumatic, bilateral external ears normal, nose normal. [] Eyes: PERRLA, conjunctiva normal, no discharge. [] Neck: No rigidity, supple, no stridor. [] Cardiovascular: Regular rate and rhythm, brisk cap refill [] Lungs & Thorax: Non labored symmetric respirations, no tachypnea or respiratory distress [] Abdomen: Soft, nondistended. Skin: Warm, dry, no erythema, no rash. Pale nailbeds [] Back: Unremarkable Extremities: No deformities, range of motion grossly intact, no lower extremity edema [] Neurologic: Alert and oriented X 3, no focal deficits noted. [] Psychologic: Affect normal, judgement normal, mood normal. [] Current Patient Data: Labs: Laboratory Tests Test 02/03/22 01:00 02/03/22 01:05 Influenza Type A Antigen Negative (NEGATIVE) Influenza Type B Antigen Negative (NEGATIVE) SARS-CoV-2 Antigen (Rapid) Negative (NEGATIVE) White Blood Count 6.5 x10^3/uL (4.0-11.0) Red Blood Count 4.47 x10^6/uL (3.50-5.40) Hemoglobin 8.3 g/dL (12.0-15.5) L Hematocrit 26.8 % (36.0-47.0) L Mean Corpuscular Volume 60 fL (79-100) L Mean Corpuscular Hemoglobin 19 pg (25-35) L Mean Corpuscular Hemoglobin Concent 31 g/dL (31-37) Red Cell Distribution Width 19.2 % (11.5-14.5) H Platelet Count 345 x10^3/uL (140-400) Neutrophils (%) (Auto) 64 % (31-73) Lymphocytes (%) (Auto) 25 % (24-48) Monocytes (%) (Auto) 7 % (0-9) Eosinophils (%) (Auto) 4 % (0-3) H Basophils (%) (Auto) 1 % (0-3) Neutrophils # (Auto) 4.2 x10^3/uL (1.8-7.7) Lymphocytes # (Auto) 1.7 x10^3/uL (1.0-4.8) Monocytes # (Auto) 0.4 x10^3/uL (0.0-1.1) Eosinophils # (Auto) 0.2 x10^3/uL (0.0-0.7) Basophils # (Auto) 0.0 x10^3/uL (0.0-0.2) Platelet Estimate Adequate (ADEQUATE) Giant Platelets Occ Polychromasia Slight Hypochromasia Marked Anisocytosis Slight Microcytosis Marked Tear Drop Cells Few Ovalocytes Occ Prothrombin Time 13.3 SEC (11.7-14.0) Prothrombin Time INR 1.0 (0.8-1.1) Maternal Serum HCG Beta Subunit < 1 mIU/mL (0-5) Sodium Level 142 mmol/L (136-145) Potassium Level 3.4 mmol/L (3.5-5.1) L Chloride Level 104 mmol/L (98-107) Carbon Dioxide Level 28 mmol/L (21-32) Anion Gap 10 (6-14) Blood Urea Nitrogen 11 mg/dL (7-20) Creatinine 0.8 mg/dL (0.6-1.0) Estimated GFR (Cockcroft-Gault) 77.9 BUN/Creatinine Ratio 14 (6-20) Glucose Level 97 mg/dL (70-99) Calcium Level 9.0 mg/dL (8.5-10.1) Total Bilirubin 0.2 mg/dL (0.2-1.0) Aspartate Amino Transferase (AST) 21 U/L (15-37) Alanine Aminotransferase (ALT) 26 U/L (14-59) Alkaline Phosphatase 93 U/L (46-116) Total Protein 7.4 g/dL (6.4-8.2) Albumin 3.4 g/dL (3.4-5.0) Albumin/Globulin Ratio 0.9 (1.0-1.7) L Thyroid Stimulating Hormone (TSH) 2.615 uIU/mL (0.358-3.74) Laboratory Tests 02/03/22 01:05 Laboratory Tests 02/03/22 01:05 Vital Signs: Vital Signs Date Time Temp Pulse Resp B/P (MAP) Pulse Ox O2 Delivery O2 Flow Rate FiO2 02/03/22 00:08 98.2 91 18 153/78 (103) 100 Room Air 98.2 EKG: EKG: [] Heart Score: C/O Chest Pain: No Risk Factors: Risk Factors: DM, Current or recent (<one month) smoker, HTN, HLP, family his tory of CAD, obesity. Risk Scores: Score 0 - 3: 2.5% MACE over next 6 weeks - Discharge Home Score 4 - 6: 20.3% MACE over next 6 weeks - Admit for Clinical Observation Score 7 - 10: 72.7% MACE over next 6 weeks - Early Invasive Strategies Radiology/Procedures: Radiology/Procedures: [facility] [address] [place] [address] IMAGING REPORT Signed PATIENT: ELEAZAR BLACK ACCOUNT: [id number] : 1975 LOCATION: ER AGE: 46 SEX: F EXAM STATUS: REG ER ORD. PHYSICIAN: CHANTELLE GUTIERREZ MD REASON: headaches PROCEDURE: CT HEAD WO CONTRAST EXAMINATION: CT head without IV contrast. INDICATION:46 years, Female, the. COMPARISON: None TECHNIQUE: Spiral acquisition of contiguous images from the skull base to the vertex were obtained. Sagittal and coronal 2D reformatted series were provided by the technologist. Soft tissue and bone window algorithms were reviewed. Exposure: One or more of the following individualized dose reduction techniques were utilized for this examination: 1. Automated exposure control 2. Adjustment of the mA and/or kV according to patient size 3. Use of iterative reconstruction technique. FINDINGS: Neither mass, midline shift, intracranial hemorrhage, acute/subacute ischemic changes, nor extraaxial fluid collections are seen. The brain parenchyma is normal in appearance. The ventricles are normal in size. The paranasal sinuses, mastoid air cells, and middle ears are clear.The orbital contents appear within normal limits. IMPRESSION: No evidence of acute intracranial abnormality. Electronically signed by: Gilberto Venegas MD (02/03/2022 3:13 AM) [facility] DICTATED and SIGNED BY: GILBERTO VENEGAS MD DATE: 02/03/22 [id number] [] Course & Med Decision Making: Course & Med Decision Making Pertinent Labs and Imaging studies reviewed. (See chart for details) Patient's headache relieved with medications. Patient's hemoglobin is around 8- 1/2 which is normal per her baseline per chart. Patient states she is no longer taking iron. Patient states she has a follow-up in a few weeks with [facility] regarding her menorrhagia. [] Dragon Disclaimer: Dragon Disclaimer: This electronic medical record was generated, in whole or in part, using a voice recognition dictation system. Departure Departure Impression: Primary Impression: Headache Additional Impression: Anemia Disposition: HOME / SELF CARE / HOMELESS Condition: IMPROVED Referrals: SEVEN PATTERSON MD (PCP) Patient Instructions: Iron Deficiency Anemia Scripts Ferrous Sulfate (FERROUS SULFATE) 325 Mg Tablet 1 TAB PO BID for iron deficiency, #60 TAB 3 Refills Prov: CHANTELLE GUTIERREZ MD 02/03/22 Problem Qualifiers CHANTELLE GUTIERREZ MD Feb 03, 2022 01:20
[2022-02-03 01:27] LABS: PROTHROMBIN TIME PATIENT 13.3 SEC (11.7-14.0)
[2022-02-03 01:28] LABS: CREATININE 0.8 mg/dL (0.6-1.0); GFR 77.9; POTASSIUM 3.4 mmol/L (3.5-5.1)
[2022-02-03] MEDS ORDERED: ACETAMINOPHEN 500 MG TABLET PO ONE (01:30)
[2022-02-03 01:33] LABS: INFLUENZA A PATIENT NEGATIVE (NEGATIVE); INFLUENZA B PATIENT NEGATIVE (NEGATIVE)
[2022-02-03 01:34] LABS: ALBUMIN 3.4 g/dL (3.4-5.0); ALBUMIN/GLOBULIN RATIO 0.9 (1.0-1.7); TOTAL BILIRUBIN 0.2 mg/dL (0.2-1.0); TOTAL PROTEIN 7.4 g/dL (6.4-8.2)
[2022-02-03] MEDS ORDERED: IV NORMAL SALINE 1000ML BAG 1,000 ML IV ONE (03:00)
[2022-02-03] MEDS ORDERED: KETOROLAC 15 MG/ML VIAL. IVP ONE (03:00)
--- NOTE | 2022-02-03 03:15 | RAD ---
EXAMINATION: CT head without IV contrast. INDICATION:46 years, Female, the. COMPARISON: None TECHNIQUE: Spiral acquisition of contiguous images from the skull base to the vertex were obtained. S agittal and coronal 2D reformatted series were provided by the technologist. Soft tissue and bone win eugenio algorithms were reviewed. Exposure: One or more of the following individualized dose reduction techniques were utilized for thi s examination: 1. Automated exposure control 2. Adjustment of the mA and/or kV according to patient size 3. Use of iterative reconstruction technique. FINDINGS: Neither mass, midline shift, intracranial hemorrhage, acute/subacute ischemic changes, nor extraaxial fluid collections are seen. The brain parenchyma is normal in appearance. The ventricles are normal in size. The paranasal sinuses, mastoid air cells, and middle ears are clear.The orbital contents appear withi n normal limits. IMPRESSION: No evidence of acute intracranial abnormality. Electronically signed by: Agustín Venegas MD (02/03/2022 3:13 AM) [facility]
[2022-02-03 03:56] LABS: ANISOCYTOSIS SLIGHT; HYPOCHROMIA MARKED; MICROCYTOSIS MARKED; PLT ESTIMATE ADEQUATE (ADEQUATE); POLYCHROMASIA SLIGHT
[2022-02-03 03:57] LABS: OVALOCYTES OCC; TEAR DROP CELLS FEW
[2022-02-03] MEDS ORDERED: FERR325T14 PO (04:07)
[2022-02-03 04:08] VITALS: BP 124/62
== END 2022-02-03 04:29 | disposition home or self-care (01) ==
LOC: ER 23:57
DX: D64.9 Anemia, unspecified (principal); Z20.822 Contact with and (suspected) exposure to COVID-19; R51.9 Headache, unspecified; R00.2 Palpitations; Z91.041 Radiographic dye allergy status
CPT/HCPCS: 36415; 70450; 80053; 84443; 84702; 85025; 85610; 86850; 86900; 86901; 87428; 96361; 96374; 99284; C9803; J1885; J7030; U0003